=== PATIENT | male | born 1960 | race Caucasian/White ===

== ENCOUNTER 2016-07-23 20:47 | Inpatient (IN) | payer OTHER ==
[~2016-07-23] VITALS: Ht 175.3 cm; Wt 61.3 kg
[2016-07-24] MEDS ORDERED: SODIUM CHLORIDE 0.9% 1,000ML IVBOLUS ONE
[2016-07-24 00:20] LABS: HEMOGLOBIN 11.3 g/dL (13.7-18.0)
[2016-07-24 00:31] LABS: BLOOD UREA NITROGEN 6 mg/dL (7-18)
[2016-07-24 00:37] LABS: ASPARTATE AMINO TRANSFERASE 29 U/L (15-37)
[2016-07-24 00:54] LABS: IS PT STATUS REG ER OR PRE ER? YES
[2016-07-24] MEDS ORDERED: OMNIPAQUE 350 MG/ML, 100ML BOTTLE ONE (02:36)
[2016-07-24] MEDS ORDERED: ONDANSETRON 2MG/ML, 2ML IVP PRN (04:00)
[2016-07-24] MEDS ORDERED: BISACODYL 10 MG SUPP PR PRN (04:00)
[2016-07-24] MEDS ORDERED: MORPHINE SULFATE 4 MG/ML, 1ML IVPush PRN (04:00)
[2016-07-24] MEDS ORDERED: POLYETHYLENE GLYCOL 17 GM PACKET PO PRN (04:00)
[2016-07-24] MEDS ORDERED: ENALAPRILAT 1.25 MG/ML, 2ML IVPush PRN (04:00)
[2016-07-24] MEDS ORDERED: ACETAMINOPHEN 325 MG TABLET PO PRN (04:00)
[2016-07-24] MEDS ORDERED: DULO60CA7 PO (04:21)
[2016-07-24] MEDS ORDERED: QUET200T4 PO (04:21)
[2016-07-24] MEDS ORDERED: OMEP40CA6 PO (04:21)
[2016-07-24] MEDS ORDERED: PREG75CA PO (04:21)
[2016-07-24] MEDS ORDERED: METF500T4 PO (04:21)
[2016-07-24 05:38] VITALS: BP 97/64
[2016-07-24 05:46] LABS: PROSTATE SPECIFIC ANTIGEN 1.49 ng/mL (0.00-4.00)
[2016-07-24] MEDS: SODIUM CHLORIDE 0.9% 1,000 ML IV SCH ×2 (06:23→15:13)
[2016-07-24] MEDS: HEPARIN 5,000 UNITS/ML, 1ML SQ SCH ×3 (06:23→20:26)
[2016-07-24] MEDS: NICOTINE 14MG/24 HR PATCH.TD24 TD SCH (06:24)
[2016-07-24 06:45] VITALS: BP 109/75
[2016-07-24] MEDS ORDERED: metFORMIN 500 MG TABLET PO SCH (09:00)
[2016-07-24] MEDS: SENNA/DOCUSATE TABLET PO SCH (09:16)
[2016-07-24] MEDS: QUETIAPINE 200 MG TABLET PO SCH (09:16)
[2016-07-24] MEDS: PREGABALIN 75 MG CAPSULE PO SCH ×2 (09:16→20:25)
[2016-07-24] MEDS: DULOXETINE 30 MG CAPSULE.DR PO SCH (09:17)
[2016-07-24] MEDS: OMEPRAZOLE 20 MG CAPSULE.DR PO SCH (09:17)
[2016-07-24] MEDS ORDERED: MAGNESIUM SULFATE PMX 2GM/50ML 50 ML IV ONE (10:00)
[2016-07-24] MEDS: OXYcodone IR 5MG TABLET PO PRN ×2 (10:04→21:03)
[2016-07-24 12:40] VITALS: BP 94/61
[2016-07-24 15:39] LABS: PATH.CAST-FLAG NOT PRESENT; SPERM-FLAG NOT PRESENT; SRC-FLAG NOT PRESENT; XTAL-FLAG NOT PRESENT; YLC-FLAG NOT PRESENT
[2016-07-24 21:29] VITALS: BP 81/58
[2016-07-24] MEDS ORDERED: OMNIPAQUE 350 MG/ML, 150 ML BOTTLE ONE (23:50)
[2016-07-25 01:44] VITALS: BP 130/84
[2016-07-25] MEDS: SODIUM CHLORIDE 0.9% 1,000 ML IV SCH ×2 (03:27→20:30)
[2016-07-25] MEDS: OXYcodone IR 5MG TABLET PO PRN ×4 (03:33→20:41)
[2016-07-25] MEDS: HEPARIN 5,000 UNITS/ML, 1ML SQ SCH ×3 (03:34→20:42)
[2016-07-25] MEDS: NICOTINE 14MG/24 HR PATCH.TD24 TD SCH (03:34)
[2016-07-25 05:06] LABS: HEMOGLOBIN 9.9 g/dL (13.7-18.0)
[2016-07-25 05:35] LABS: ASPARTATE AMINO TRANSFERASE 25 U/L (15-37); BLOOD UREA NITROGEN 5 mg/dL (7-18)
[2016-07-25 06:47] VITALS: BP 106/75
[2016-07-25] MEDS ORDERED: POTASSIUM CHLORIDE 40 MEQ in SODIUM CHLORIDE 0.9% 500 ML IV ONE (08:00)
[2016-07-25] MEDS: SENNA/DOCUSATE TABLET PO SCH (09:00)
[2016-07-25] MEDS: QUETIAPINE 200 MG TABLET PO SCH (09:53)
[2016-07-25] MEDS: OMEPRAZOLE 20 MG CAPSULE.DR PO SCH (09:53)
[2016-07-25] MEDS: PREGABALIN 75 MG CAPSULE PO SCH ×2 (09:53→20:41)
[2016-07-25] MEDS: DULOXETINE 30 MG CAPSULE.DR PO SCH (09:57)
[2016-07-25 12:52] VITALS: BP 107/70
[2016-07-25 20:02] VITALS: BP 128/92
[2016-07-26 02:33] VITALS: BP 110/75
[2016-07-26] MEDS: HEPARIN 5,000 UNITS/ML, 1ML SQ SCH ×3 (03:34→21:09)
[2016-07-26] MEDS: OXYcodone IR 5MG TABLET PO PRN ×4 (03:35→21:14)
[2016-07-26] MEDS: NICOTINE 14MG/24 HR PATCH.TD24 TD SCH (03:35)
[2016-07-26 06:38] VITALS: BP 130/90
[2016-07-26 06:47] LABS: BLOOD UREA NITROGEN 6 mg/dL (7-18)
[2016-07-26 06:59] LABS: HEMOGLOBIN 10.3 g/dL (13.7-18.0)
[2016-07-26 07:44] VITALS: BP_SYST 107; BP_SYST 117; BP_SYST 121; BP_DIAS 75; BP_DIAS 84; BP_DIAS 89
[2016-07-26] MEDS: OMEPRAZOLE 20 MG CAPSULE.DR PO SCH (08:57)
[2016-07-26] MEDS: DULOXETINE 30 MG CAPSULE.DR PO SCH (08:57)
[2016-07-26] MEDS: QUETIAPINE 200 MG TABLET PO SCH (08:58)
[2016-07-26] MEDS: PREGABALIN 75 MG CAPSULE PO SCH ×2 (08:58→21:09)
[2016-07-26] MEDS: SENNA/DOCUSATE TABLET PO SCH (09:00)
[2016-07-26 14:15] VITALS: BP_SYST 112; BP_SYST 127; BP_SYST 93; BP_DIAS 67; BP_DIAS 77; BP_DIAS 86
[2016-07-26 20:23] VITALS: BP_SYST 127; BP_SYST 139; BP_SYST 160; BP_DIAS 90; BP_DIAS 94; BP_DIAS 98
[2016-07-27 02:26] VITALS: BP 127/81
[2016-07-27] MEDS: HEPARIN 5,000 UNITS/ML, 1ML SQ SCH (03:31)
[2016-07-27] MEDS: NICOTINE 14MG/24 HR PATCH.TD24 TD SCH (03:31)
[2016-07-27] MEDS: OXYcodone IR 5MG TABLET PO PRN ×2 (03:32→08:34)
[2016-07-27 07:16] VITALS: BP_SYST 124; BP_SYST 130; BP_SYST 134; BP_DIAS 80; BP_DIAS 89; BP_DIAS 94
[2016-07-27] MEDS: DULOXETINE 30 MG CAPSULE.DR PO SCH (08:35)
[2016-07-27] MEDS: OMEPRAZOLE 20 MG CAPSULE.DR PO SCH (08:35)
[2016-07-27] MEDS: PREGABALIN 75 MG CAPSULE PO SCH (08:35)
[2016-07-27] MEDS: SENNA/DOCUSATE TABLET PO SCH (08:35)
== END 2016-07-27 11:55 | DRG 640 ==
LOC: ED 23:59 → EDIP 07-24 03:10 → 4EST 07-24 05:06 → DCLOUNGE 07-27 11:34
PROVIDERS: ADMIT Internal Medicine; ATTEND Internal Medicine
PROC: 0T9B70Z Drainage of Bladder with Drainage Device, Via Natural or Artificial Opening (ICD-10-PCS; principal; 2016-07-24)
DX: E86.0 Dehydration (principal); E43 Unspecified severe protein-calorie malnutrition; M19.90 Unspecified osteoarthritis, unspecified site; F32.9 Major depressive disorder, single episode, unspecified; F17.210 Nicotine dependence, cigarettes, uncomplicated; Z88.8 Allergy status to other drugs, medicaments and biological substances; E11.40 Type 2 diabetes mellitus with diabetic neuropathy, unspecified; Z82.49 Family history of ischemic heart disease and other diseases of the circulatory system; E83.42 Hypomagnesemia; I71.2 Thoracic aortic aneurysm, without rupture; M41.9 Scoliosis, unspecified; M47.812 Spondylosis without myelopathy or radiculopathy, cervical region; K21.9 Gastro-esophageal reflux disease without esophagitis; E87.6 Hypokalemia; Z59.0 Homelessness; Z68.20 Body mass index [BMI] 20.0-20.9, adult
CPT/HCPCS: 36415; 70450; 71010; 71275; 74177; 80048; 80053; 80061; 81001; 82306; 82378; 82607; 82746; 82962; 83036; 83735; 84153; 84439; 84443; 84484; 85025; 85379; 87040; 87324; 93005; 93306; 93970; 99285; J1644; J3480; Q9967; J3475; J7030; J7040

== ENCOUNTER 2016-08-03 20:51 | Emergency (ER) | payer MEDICAID, OTHER ==
[~2016-08-03] VITALS: Ht 175.3 cm; Wt 60.0 kg
[~2016-08-03 20:51] MED LIST: DULO60CA7 PO; METF500T4 PO; OMEP40CA6 PO; PREG75CA PO; QUET200T4 PO
[2016-08-03 20:53] VITALS: BP 128/85
[2016-08-03] MEDS ORDERED: OXYC20TA42 PO (22:20)
[2016-08-03 22:58] LABS: HEMOGLOBIN 11.9 g/dL (13.7-18.0)
[2016-08-03 23:06] LABS: BLOOD UREA NITROGEN 7 mg/dL (7-18)
== END 2016-08-03 23:47 | disposition home or self-care (01) ==
LOC: ED 23:41
DX: R53.1 Weakness (principal); R42 Dizziness and giddiness; F10.10 Alcohol abuse, uncomplicated; Y90.9 Presence of alcohol in blood, level not specified; F32.9 Major depressive disorder, single episode, unspecified; Z79.899 Other long term (current) drug therapy
CPT/HCPCS: 36415; 80048; 80307; 82040; 84439; 84443; 85025; 93005